=== PATIENT | male | born 1935 | race Caucasian/White ===

== ENCOUNTER → 2016-09-18 | Outpatient (CLI) | payer BC ==
[~2016-09-18] MED LIST: ACET-1256 PO; AMOX500C3 PO; CALC-354 PO; CLC6 PO; CLTP PO; CMD/1 PO; CMD5 PO; CYAN100020 SL; IPRA0.03 NAE; LEVO75TA5 PO; MULT-513 PO; NZRSHM; SIMV40TA2 PO; TEST5GEL TOP; VGR50 PO; WARF5TAB7 PO; WARF7.5T4 PO
[2016-09-18 09:37] LABS: BASO % 0.5 %; BASO ABS # 0.04 K/uL (0-0.2); COMPLETE YES; EOS % 2.2 %; HEMATOCRIT 45.7 % (42-52); IG% 0.3 %; LYMPH % 14.4 %; MEAN CELL VOLUME 92.1 fL (80-100); MEAN CORPUSCULAR HEMOGLOBIN 29.6 pg (25-34); MEAN CORPUSCULAR HGB CONC 32.2 g/dl (32-36); MEAN PLATELET VOLUME 12.9 fL (7.4-10.4); MONO % 11.4 %; NEUT % 71.2 %; PLATELET COUNT 156 K/uL (130-400); RED BLOOD COUNT 4.96 M/uL (4.7-6.1); WHITE BLOOD COUNT 7.63 K/uL (4.8-10.8)
[2016-09-18 10:02] LABS: ESTIMATED AVERAGE GLUCOSE 114 mg/dl; HA1C FLAG Normal (Normal)
[2016-09-18 10:35] LABS: ALT/SGPT 22 U/L (12-78); AST/SGOT 18 U/L (15-37); BLOOD UREA NITROGEN 29 mg/dl (7-18); BUN/CREATININE RATIO 15.3 (10-20); CALCIUM 8.6 mg/dl (8.5-10.1); CARBON DIOXIDE 29 mmol/L (21-32); CHLORIDE 109 mmol/L (98-107); GLUCOSE 100 mg/dl (70-99); POTASSIUM 4.5 mmol/L (3.5-5.1); SODIUM 144 mmol/L (136-145)
[2016-09-18 10:46] LABS: ALB/GLOB RATIO 1.3 (0.9-2); ALKALINE PHOSPHATASE 55 U/L (45-117); CHOLESTEROL 171 mg/dl (0-200); CHOLESTEROL/HDL RATIO 3.5; HDL CHOLESTEROL 49 mg/dl; LDL CHOLESTEROL CALCULATED 97 mg/dl; TRIGLYCERIDES 125 mg/dl (0-150); VERY LOW DENSITY LIPOPROT CALC 25 mg/dl
--- NOTE | 2016-09-22 11:51 | CODING QUERY MEDICAL NECESSITY ---
CQSUPPORTING DIAGNOSIS NEEDED A supporting diagnosis is required for the test/procedure performed on this patient in order for us to be reimbursed by the patient's insurance. Please provide a supporting diagnosis for the following test/procedure listed below next to the test name along with your signature. *If there is no additional diagnosis for this patient that would support the following test/procedure please document that below next to the test/procedure. Test(s)/Procedure(s) that require a supporting diagnosis: DOS 09/18/16 GLYCATED HEMOGLOBIN TEST Provider Signature: Date: Thank you Sherice [facility] [employer] Information [employer] Once completed, please kindly fax back to [phone] For questions please call [phone]
== END | disposition home or self-care (01) ==
LOC: C.LAB1850 08:46
PROVIDERS: ATTEND Family Medicine
DX: E78.00 Pure hypercholesterolemia, unspecified (principal); E03.9 Hypothyroidism, unspecified; I25.10 Atherosclerotic heart disease of native coronary artery without angina pectoris

== ENCOUNTER 2016-10-14 08:11 | Emergency (ER) | payer BC ==
[~2016-10-14] VITALS: Ht 188 cm; Wt 81.0 kg
[~2016-10-14 08:11] MED LIST changes: -ACET-1256 PO; -CALC-354 PO; -WARF5TAB7 PO; -WARF7.5T4 PO
[2016-10-14 08:29] VITALS: TEMP 36.7; Ht 188 cm; Wt 81.0 kg
--- NOTE | 2016-10-14 09:20 | EMERGENCY ROOM VISIT NOTE ---
History Report prepared by Nettie: Martin Sosa Under the Supervision of: Dr. Elle Valle M.D. First contact with patient: 08:56 Chief Complaint: HIP PAIN Stated Complaint: RIGHT HIP FEELS INJURED History of Present Illness The patient is a 81 year old male who presents to the Emergency Room with complaints of right hip pain that began last night. He rates his pain a 9/10 in severity. At this time, the patient was napping on the couch. He then tried to get up and tripped over the coffee table. He then fell onto his right hip and both elbows. He landed on carpet that was over hardwood floor. He did not lose consciousness or hit his head. He denies any neck pain, back pain, or abdominal pain. His hip pain worsens with weight bearing and movement. He takes a blood thinner secondary to an artificial aortic valve that was placed in 1985. Source of History: patient Onset: last night Position: other (Right hip) Symptom Intensity: 9/10 Quality: ache Timing: constant Modifying Factors (Worsening): exertion, movement Associated Symptoms: No LOC, No abdominal pain, No back pain, No headache, No neck pain Review of Systems See HPI for pertinent positives & negatives. A total of 10 systems reviewed and were otherwise negative. Past Medical & Surgical Medical Problems: (1) Cardiomegaly Surgical Problems: (1) H/O aortic valve replacement Family History Diabetes mellitus Hypertension Social History Smoking Status: Never Smoker Smokeless Tobacco Use: No Alcohol Use: occasionally Drug Use: none Marital Status: Housing Status: lives with family Occupation Status: retired Current/Historical Medications Scheduled Acetaminophen (Tylenol), 1,000 MG PO DAILY Amoxicillin (Amoxil), MG PO UD Calcium Carbonate-Cholecalcife (Caltrate 600+D), 1 TAB PO DAILY Cyanocobalamin (Vitamin B12), 5,000 MCG SL DAILY Ipratropium [place] (Nasal) (Ipratropium [place]), 3 SPRAYS TICO DAILY Ketoconazole (Ketoconazole), UD Levothyroxine Sodium (Levothyroxine Sodium), 75 MCG PO DAILY Multivitamins/Minerals (Mvi With Minerals), 1 TAB PO DAILY Sildenafil Citrate (Viagra), 50 MG PO PRN Simvastatin (Zocor), 40 MG PO QPM Testosterone (Androgel Pump), 40.5 MG TOP DAILY Warfarin Sod (Jantoven), 7.5 MG PO UD Warfarin Sod (Jantoven), 5 MG PO UD Scheduled PRN Colchicine (Colcrys), 0.6 MG PO UD PRN for GOUT Allergies Uncoded Allergies: CODEINE DERIVATIVES (Allergy, Unknown, UNKNOWN, 11/12/15) HYDROMET (Allergy, Unknown, UNKNOWN, 11/12/15) Physical Exam Vital Signs Date Time Temp Pulse Resp B/P Pulse Ox O2 Delivery O2 Flow Rate FiO2 10/14/16 14:06 68 20 134/80 96 Room Air 10/14/16 12:50 69 20 124/70 99 Room Air 10/14/16 10:52 79 18 136/77 93 Room Air 10/14/16 08:29 36.7 78 18 139/74 94 Room Air Physical Exam Vital signs reviewed. General: Well-appearing elderly man, in no significant distress. HEENT: No scleral icterus, PERRLA, neck supple. Atraumatic. Cardiovascular: Regular rate and rhythm, systolic ejection murmur. Pulmonary: Clear to auscultation bilaterally, normal work of breathing. Abdomen: Soft, nontender, nondistended, positive bowel sounds. Musculoskeletal: Mild tenderness to palpation over the proximal right femur, some discomfort with straight leg raise, complains of pain at the right iliac crest with movement, no peripheral edema. Neurologic: Patient awake alert and oriented x 3, full strength in all 4 extremities. Cranial nerves 2 through 12 grossly intact. Skin: Warm, dry, no rash Medical Decision & Procedures ER Provider Diagnostic Interpretation: Radiology results as stated below per my review and radiologist interpretation: LUMBAR SPINE 5 VIEWS HISTORY: Trauma. Pain. Radiculopathy. pain r leg with weight bearing, fall COMPARISON: None. FINDINGS: There is no fracture. No subluxation. Moderate to rather significant degenerative disc changes throughout. Degenerative change of vertebral endplates. IMPRESSION: Degenerative change. No acute bony abnormality. Electronically signed by: Jose Ramon Dowd M.D. 10/14/2016 10:47 AM Dictated Date/Time: 10/14/2016 10:46 AM RIGHT PELVIS/UNILATERAL HIP 2-3VIEWS CLINICAL HISTORY: PAIN R LEG WITH WEIGHT BEARING, FALL Right COMPARISON: None. DISCUSSION: Fracture medial right pubic ring. No evidence for hip fracture. No evidence for acetabular protrusion. There is no evidence for soft tissue swelling. IMPRESSION: Fracture medial right pubic ring. Electronically signed by: Jose Ramon Dowd M.D. 10/14/2016 10:46 AM Dictated Date/Time: 10/14/2016 10:45 AM Laboratory Results 10/14/16 12:55 Red Blood Count 4.98, Mean Corpuscular Volume 90.8, Mean Corpuscular Hemoglobin 29.7, Mean Corpuscular Hemoglobin Concent 32.7, Mean Platelet Volume 12.4, Neutrophils (%) (Auto) 78.5, Lymphocytes (%) (Auto) 10.4, Monocytes (%) (Auto) 9.0, Eosinophils (%) (Auto) 1.6, Basophils (%) (Auto) 0.2, Neutrophils # (Auto) 7.79, Lymphocytes # (Auto) 1.03, Monocytes # (Auto) 0.89, Eosinophils # (Auto) 0.16, Basophils # (Auto) 0.02 10/14/16 12:55 Test 10/14/16 12:55 White Blood Count 9.92 K/uL (4.8-10.8) Red Blood Count 4.98 M/uL (4.7-6.1) Hemoglobin 14.8 g/dL (14.0-18.0) Hematocrit 45.2 % (42-52) Mean Corpuscular Volume 90.8 fL (80-100) Mean Corpuscular Hemoglobin 29.7 pg (25-34) Mean Corpuscular Hemoglobin Concent 32.7 g/dl (32-36) Platelet Count 162 K/uL (130-400) Mean Platelet Volume 12.4 fL (7.4-10.4) Neutrophils (%) (Auto) 78.5 % Lymphocytes (%) (Auto) 10.4 % Monocytes (%) (Auto) 9.0 % Eosinophils (%) (Auto) 1.6 % Basophils (%) (Auto) 0.2 % Neutrophils # (Auto) 7.79 K/uL (1.4-6.5) Lymphocytes # (Auto) 1.03 K/uL (1.2-3.4) Monocytes # (Auto) 0.89 K/uL (0.11-0.59) Eosinophils # (Auto) 0.16 K/uL (0-0.5) Basophils # (Auto) 0.02 K/uL (0-0.2) RDW Standard Deviation 46.3 fL (36.4-46.3) RDW Coefficient of Variation 13.8 % (11.5-14.5) Immature Granulocyte % (Auto) 0.3 % Immature Granulocyte # (Auto) 0.03 K/uL (0.00-0.02) Platelet Estimate NORMAL Prothrombin Time 29.2 SECONDS (9.0-12.0) Prothromb Time International Ratio 2.6 (0.9-1.1) Activated Partial Thromboplast Time 45.1 SECONDS (21.0-31.0) Partial Thromboplastin Ratio 1.7 Anion Gap 2.0 mmol/L (3-11) Est Creatinine Clear Calc Drug Dose 41.5 ml/min Estimated GFR () 46.1 Estimated GFR (Non- 39.8 BUN/Creatinine Ratio 14.8 (10-20) Calcium Level 8.9 mg/dl (8.5-10.1) Magnesium Level 2.3 mg/dl (1.8-2.4) Total Bilirubin 1.1 mg/dl (0.2-1) Direct Bilirubin 0.2 mg/dl (0-0.2) Aspartate Amino Transf (AST/SGOT) 20 U/L (15-37) Alanine Aminotransferase (ALT/SGPT) 25 U/L (12-78) Alkaline Phosphatase 68 U/L (45-117) Total Protein 7.1 gm/dl (6.4-8.2) Albumin 4.0 gm/dl (3.4-5.0) Laboratory results per my review. ECG Indication: other (Fall) Rate (beats per minute): 62 Rhythm: normal sinus Findings: LBBB (Incomplete), no acute ischemic change, left axis deviation, no ectopy ED Course 0856: Past medical records reviewed. The patient was evaluated in room B11B. A complete history and physical examination was performed. 1540: The patient was signed out to Dr. Lock at the change in shifts. Medical Decision Differential diagnosis: Etiologies such as fracture, dislocation, neurovascular compromise, compartment syndrome, soft tissue injury, as well as others were entertained. This patient was evaluated and appeared to be in no significant distress. Physical examination is consistent with some pain along the right hip/pelvis. X -rays were performed and are consistent with a right pubic ring fracture. Patient's laboratory work was obtained and is fairly unrevealing. The patient is therapeutic with his INR. The patient has remained stable in the emergency department. He is fairly comfortable without bearing weight. He is unstable and requires some assistance with any ambulation. This time the patient will greatly benefit from pain management and physical therapy. He will be referred to [facility] for further management. At this time we are awaiting insurance approval and case management arrangements. The patient was signed out to Dr. Lock at the change of shift, pending disposition. Impression Primary Impression: Complete disruption of pelvic ring Additional Impression: Fracture, pelvis closed Scribe Attestation The scribe's documentation has been prepared under my direction and personally reviewed by me in its entirety. I confirm that the note above accurately reflects all work, treatment, procedures, and medical decision making performed by me. Departure Information Dispostion Still a Patient Referrals Opal Guerrero DO (PCP) Patient Instructions My [facility] Problem Qualifiers
[2016-10-14] MEDS ORDERED: WARF7.5T4 PO (10:13)
[2016-10-14] MEDS ORDERED: WARF5TAB7 PO (10:15)
[2016-10-14] MEDS ORDERED: ACET-1256 PO (10:17)
[2016-10-14] MEDS ORDERED: CALC-354 PO (10:18)
--- NOTE | 2016-10-14 10:47 | DIAGNOSTIC IMAGING REPORT ---
RIGHT PELVIS/UNILATERAL HIP 2-3VIEWS CLINICAL HISTORY: PAIN R LEG WITH WEIGHT BEARING, FALL Right COMPARISON: None. DISCUSSION: Fracture medial right pubic ring. No evidence for hip fracture. No evidence for acetabular protrusion. There is no evidence for soft tissue swelling. IMPRESSION: Fracture medial right pubic ring. Electronically signed by: Jose Ramon Dowd M.D. 10/14/2016 10:46 AM Dictated Date/Time: 10/14/2016 10:45 AM
--- NOTE | 2016-10-14 10:48 | DIAGNOSTIC IMAGING REPORT ---
LUMBAR SPINE 5 VIEWS HISTORY: Trauma. Pain. Radiculopathy. pain r leg with weight bearing, fall COMPARISON: None. FINDINGS: There is no fracture. No subluxation. Moderate to rather significant degenerative disc changes throughout. Degenerative change of vertebral endplates. IMPRESSION: Degenerative change. No acute bony abnormality. Electronically signed by: Jose Ramon Dowd M.D. 10/14/2016 10:47 AM Dictated Date/Time: 10/14/2016 10:46 AM
[2016-10-14 13:31] LABS: INR 2.6 (0.9-1.1); PARTIAL THROMBOPLASTIN RATIO 1.7; PROTHROMBIN TIME (PATIENT) 29.2 SECONDS (9.0-12.0)
[2016-10-14 13:34] LABS: BUN/CREATININE RATIO 14.8 (10-20); CALCIUM 8.9 mg/dl (8.5-10.1); CREATININE 1.6 mg/dl (0.60-1.40); MAGNESIUM 2.3 mg/dl (1.8-2.4); POTASSIUM 4.5 mmol/L (3.5-5.1)
[2016-10-14 14:02] LABS: BASO % 0.2 %; BASO ABS # 0.02 K/uL (0-0.2); COMPLETE YES; EOS % 1.6 %; HEMATOCRIT 45.2 % (42-52); IG% 0.3 %; LYMPH % 10.4 %; LYMPH ABS # 1.03 K/uL (1.2-3.4); MEAN CELL VOLUME 90.8 fL (80-100); MEAN CORPUSCULAR HEMOGLOBIN 29.7 pg (25-34); MEAN CORPUSCULAR HGB CONC 32.7 g/dl (32-36); MEAN PLATELET VOLUME 12.4 fL (7.4-10.4); NEUT % 78.5 %; PLATELET COUNT 162 K/uL (130-400); PLT ESTIMATE NORMAL; RED BLOOD COUNT 4.98 M/uL (4.7-6.1); WHITE BLOOD COUNT 9.92 K/uL (4.8-10.8)
[2016-10-14 19:55] VITALS: BP 124/61; PULSE 78; O2SAT 98
--- NOTE | 2016-10-15 00:30 | EMERGENCY ROOM VISIT NOTE ---
ED Visit Note Patient sent to [facility].
== END 2016-10-14 20:06 ==
LOC: C.EDB 08:12
DX: S32.810A Multiple fractures of pelvis with stable disruption of pelvic ring, initial encounter for closed fracture (principal); W01.0XXA Fall on same level from slipping, tripping and stumbling without subsequent striking against object, initial encounter; Y92.009 Unspecified place in unspecified non-institutional (private) residence as the place of occurrence of the external cause; I51.7 Cardiomegaly; Z79.01 Long term (current) use of anticoagulants; Z95.2 Presence of prosthetic heart valve; Z83.3 Family history of diabetes mellitus; Z82.49 Family history of ischemic heart disease and other diseases of the circulatory system

== ENCOUNTER → 2016-11-08 | Outpatient (CLI) | payer BC ==
[~2016-11-08] MED LIST changes: +ACET-1256 PO; +CALC-354 PO; -CLTP PO; -CMD/1 PO; -CMD5 PO; +WARF5TAB7 PO; +WARF7.5T4 PO
[2016-11-08 17:09] LABS: BLOOD UREA NITROGEN 24 mg/dl (7-18); CALCIUM 8.5 mg/dl (8.5-10.1); CARBON DIOXIDE 29 mmol/L (21-32); CHLORIDE 109 mmol/L (98-107); GLUCOSE 114 mg/dl (70-99); POTASSIUM 4.8 mmol/L (3.5-5.1); SODIUM 143 mmol/L (136-145)
== END | disposition home or self-care (01) ==
LOC: C.LABBC 13:36
PROVIDERS: ATTEND Family Medicine
DX: N18.3 Chronic kidney disease, stage 3 (moderate) (principal); E03.9 Hypothyroidism, unspecified

== ENCOUNTER → 2016-12-05 | Outpatient (CLI) | payer BC ==
--- NOTE | 2016-12-05 11:02 | DIAGNOSTIC IMAGING REPORT ---
SINGLE VIEW PELVIS CLINICAL HISTORY: Follow-up pelvic fracture. FINDINGS: 2 AP pelvic radiographs are compared to study dated 11/12/2015. The skeletal structures are osteopenic. There is a chronic appearing right inferior pubic ring fracture. No acute fracture is identified. Mild arthritic change is noted in the hips. There is mild sclerotic change seen in the sacroiliac joints. Surgical clips project over the left groin. Phleboliths are seen in the pelvis. IMPRESSION: 1. No acute fracture is identified involving the hips or bony pelvis. 2. Osteopenia, mild degenerative change, and chronic right pubic ring fracture as above. Electronically signed by: Jose Johnson M.D. 12/05/2016 11:01 AM Dictated Date/Time: 12/05/2016 10:58 AM
== END | disposition home or self-care (01) ==
LOC: C.RAD1850 10:34
PROVIDERS: ATTEND Nurse Practitioner Family
DX: S32.9XXA Fracture of unspecified parts of lumbosacral spine and pelvis, initial encounter for closed fracture (principal); X58.XXXA Exposure to other specified factors, initial encounter; M85.88 Other specified disorders of bone density and structure, other site

== ENCOUNTER → 2016-12-13 | Outpatient (CLI) | payer BC | END | disposition home or self-care (01) | LOC: C.LAB1850 10:01 | PROVIDERS: ATTEND Nurse Practitioner Family | DX: S32.9XXA Fracture of unspecified parts of lumbosacral spine and pelvis, initial encounter for closed fracture (principal); X58.XXXA Exposure to other specified factors, initial encounter; M85.80 Other specified disorders of bone density and structure, unspecified site ==

== ENCOUNTER → 2016-12-20 | Outpatient (CLI) | payer BC ==
--- NOTE | 2016-12-26 10:26 | CODING QUERY MEDICAL NECESSITY ---
SUPPORTING DIAGNOSIS NEEDED A supporting diagnosis is required for the test/procedure performed on this patient in order for us to be reimbursed by the patient's insurance. Please provide a supporting diagnosis for the following test/procedure listed below next to the test name along with your signature. *If there is no additional diagnosis for this patient that would support the following test/procedure please document that below next to the test/procedure. Test(s)/Procedure(s) that require a supporting diagnosis: * DXA, BONE DENSITY AXIAL DIAGNOSIS: Provider Signature: Date: Thank you Tegan [employer] Information Management Once completed, please kindly fax back to [phone] For questions please call [phone]
== END | disposition home or self-care (01) ==
LOC: C.MAMM 13:30
PROVIDERS: ATTEND Nurse Practitioner Family
DX: S32.9XXA Fracture of unspecified parts of lumbosacral spine and pelvis, initial encounter for closed fracture (principal); X58.XXXA Exposure to other specified factors, initial encounter; M85.88 Other specified disorders of bone density and structure, other site

== ENCOUNTER → 2017-01-25 | Outpatient (CLI) | payer BC | END | disposition home or self-care (01) | LOC: C.PATHSPEC 17:27 | PROVIDERS: ATTEND Dermatology | DX: L57.0 Actinic keratosis (principal) ==

== ENCOUNTER → 2017-05-23 | Outpatient (CLI) | payer BC ==
[2017-05-23 12:30] LABS: BLOOD UREA NITROGEN 22 mg/dl (7-18); CREATININE 1.85 mg/dl (0.60-1.40)
== END | disposition home or self-care (01) ==
LOC: C.LAB1850 10:42
PROVIDERS: ATTEND Physician Assistant
DX: H53.19 Other subjective visual disturbances (principal)

== ENCOUNTER → 2017-05-25 | Outpatient (CLI) | payer BC ==
--- NOTE | 2017-05-25 19:52 | DIAGNOSTIC IMAGING REPORT ---
BRAIN W/O FOR IAC CLINICAL HISTORY: 81 years-old Male presenting with N18.3 Stage III chronic kidney [id number] Vertigo, oscillopsia, fall off ladder a few months ago and hit head, now with dull frontal headache, vertigo, off balance. TECHNIQUE: Multisequence, multiplanar MR imaging of the brain was performed without the use of intravenous contrast. IV contrast: None. COMPARISON: 03/22/2016. FINDINGS: Proportional ventricular and sulcal prominence, likely age-related parenchymal volume loss. Periventricular and subcortical white matter T2/FLAIR hyperintensity, nonspecific but likely indicative of chronic small vessel ischemic change. 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 Internal auditory canals normal. Visualized cranial nerves normal. Inner ear structures normal. No mass effect or midline shift. No restricted diffusion to suggest acute ischemia. No hemorrhage. No extra-axial fluid collection. Abnormal signal intensity within the left sigmoid sinus. T2 skull base flow voids otherwise preserved. Bone marrow signal intensity within the calvarium within normal limits. IMPRESSION: 1. Chronic small vessel ischemic change. No acute intracranial abnormality. 2. Abnormal signal intensity within the left sigmoid sinus where a flow void is expected. This could relate to slow flow artifact. Less likely differential considerations include thrombus. If there is clinical concern for this and he, MRV or CTV be obtained. Electronically signed by: Edwardo Edwards M.D. 05/25/2017 7:51 PM Dictated Date/Time: 05/25/2017 7:44 PM
== END | disposition home or self-care (01) ==
LOC: C.MRI 17:57
PROVIDERS: ATTEND Physician Assistant
DX: N18.3 Chronic kidney disease, stage 3 (moderate) (principal); R42 Dizziness and giddiness

== ENCOUNTER → 2017-06-08 | Outpatient (CLI) | payer BC ==
[2017-06-08 17:28] LABS: BASO % 0.9 %; BASO ABS # 0.07 K/uL (0-0.2); EOS % 3.2 %; EOS ABS # 0.26 K/uL (0-0.5); HEMATOCRIT 42.8 % (42-52); HEMOGLOBIN 13.7 g/dL (14.0-18.0); IG# 0.02 K/uL (0.00-0.02); LYMPH % 18.3 %; MEAN CORPUSCULAR HEMOGLOBIN 29.8 pg (25-34); MEAN PLATELET VOLUME 12.9 fL (7.4-10.4); MONO % 9.6 %; MONO ABS # 0.79 K/uL (0.11-0.59); NEUT % 67.8 %; NEUT ABS # 5.57 K/uL (1.4-6.5); PLATELET COUNT 152 K/uL (130-400); RED CELL DISTRIBUTION WIDTH CV 13.7 % (11.5-14.5); RED CELL DISTRIBUTION WIDTH SD 46.2 fL (36.4-46.3); WHITE BLOOD COUNT 8.21 K/uL (4.8-10.8)
== END | disposition home or self-care (01) ==
LOC: C.LAB1850 16:20
PROVIDERS: ATTEND Ophthalmology
DX: E03.9 Hypothyroidism, unspecified (principal); G45.3 Amaurosis fugax

== ENCOUNTER → 2017-07-03 | Outpatient (CLI) | payer BC | END | disposition home or self-care (01) | LOC: C.LABSPEC 11:29 | PROVIDERS: ATTEND Podiatrist Primary Podiatric Medicine | DX: B35.1 Tinea unguium (principal) ==

== ENCOUNTER → 2017-07-19 | Outpatient (CLI) | payer BC ==
--- NOTE | 2017-07-19 09:03 | DIAGNOSTIC IMAGING REPORT ---
MR ANGIOGRAPHY OF THE [place] NO CONTRAST CLINICAL HISTORY: G45.3 Amaurosis [id number] HEADACHES COMPARISON STUDY: MRI the brain dated 05/25/2017 A 3-D [id number] MR angiographic sequence of the [place] was performed. Both the source and projection images were reviewed. There is no evidence of major intracranial branch occlusion. There is a hypoplastic right A1 segment. There is no evidence of intracranial stenosis. There are no lesions suspicious for aneurysm. IMPRESSION: Hypoplastic right A1 segment. Otherwise unremarkable MR angiography of the [place]. Electronically signed by: Thomas Santillan M.D. 07/19/2017 9:02 AM Dictated Date/Time: 07/19/2017 8:35 AM
== END | disposition home or self-care (01) ==
LOC: C.MRI 07:57
PROVIDERS: ATTEND Physician Assistant
DX: G45.3 Amaurosis fugax (principal)

== ENCOUNTER → 2017-07-26 | Outpatient (CLI) | payer BC ==
[2017-08-02 20:16] LABS: ACETYLCHOLINE RECEPT BLOCKING <15 % inhibit (<15)
== END | disposition home or self-care (01) ==
LOC: C.LAB 14:03
PROVIDERS: ATTEND Physician Assistant
DX: H53.2 Diplopia (principal)

== ENCOUNTER → 2017-08-01 | Outpatient (CLI) | payer BC ==
[2017-08-07 22:32] LABS: ACETYLCHOLINE RECEPT BLOCKING <15 % inhibit (<15)
== END | disposition home or self-care (01) ==
LOC: C.LAB1850 11:12
PROVIDERS: ATTEND Physician Assistant
DX: E03.9 Hypothyroidism, unspecified (principal); H53.2 Diplopia

== ENCOUNTER → 2017-08-10 | Outpatient (CLI) | payer BC ==
--- NOTE | 2017-08-10 13:25 | DIAGNOSTIC IMAGING REPORT ---
MRA NECK WITHOUT CONTRAST CLINICAL HISTORY: G45.3 Amaurosis [id number] COMPARISON STUDY: No previous studies for comparison. FINDINGS: A noncontrast MR angiography study the neck was performed. The study reveals no evidence of hemodynamically significant carotid stenosis. IMPRESSION: No evidence of hemodynamically significant carotid stenosis. Electronically signed by: Thomas Santillan M.D. 08/10/2017 1:23 PM Dictated Date/Time: 08/10/2017 1:22 PM
== END | disposition home or self-care (01) ==
LOC: C.MRIBC 12:28
PROVIDERS: ATTEND Psychiatry & Neurology Neurology
DX: G45.3 Amaurosis fugax (principal)

== ENCOUNTER → 2017-10-10 | Outpatient (CLI) | payer BC ==
[2017-10-10 09:38] LABS: BASO % 0.5 %; BASO ABS # 0.04 K/uL (0-0.2); EOS % 3.2 %; EOS ABS # 0.26 K/uL (0-0.5); HEMATOCRIT 41.1 % (42-52); HEMOGLOBIN 13.2 g/dL (14.0-18.0); IG# 0.01 K/uL (0.00-0.02); LYMPH % 12.6 %; LYMPH ABS # 1.04 K/uL (1.2-3.4); MEAN CELL VOLUME 90.1 fL (80-100); MEAN CORPUSCULAR HEMOGLOBIN 28.9 pg (25-34); MEAN CORPUSCULAR HGB CONC 32.1 g/dl (32-36); MEAN PLATELET VOLUME 12.1 fL (7.4-10.4); MONO % 11.6 %; MONO ABS # 0.96 K/uL (0.11-0.59); NEUT ABS # 5.94 K/uL (1.4-6.5); PLATELET COUNT 186 K/uL (130-400); RED CELL DISTRIBUTION WIDTH CV 14.4 % (11.5-14.5); RED CELL DISTRIBUTION WIDTH SD 47.3 fL (36.4-46.3); WHITE BLOOD COUNT 8.25 K/uL (4.8-10.8)
[2017-10-10 10:08] LABS: BLOOD UREA NITROGEN 25 mg/dl (7-18); CREATININE 1.76 mg/dl (0.60-1.40); GLUCOSE 88 mg/dl (70-99)
[2017-10-10 10:09] LABS: ALBUMIN 3.8 gm/dl (3.4-5.0); ALT/SGPT 36 U/L (12-78); AST/SGOT 32 U/L (15-37); CALCIUM 8.3 mg/dl (8.5-10.1); CARBON DIOXIDE 29 mmol/L (21-32); CHOLESTEROL 140 mg/dl (0-200); POTASSIUM 4.3 mmol/L (3.5-5.1); SODIUM 142 mmol/L (136-145)
[2017-10-10 10:17] LABS: ALKALINE PHOSPHATASE 72 U/L (45-117); LDL CHOLESTEROL CALCULATED 81 mg/dl
== END | disposition home or self-care (01) ==
LOC: C.LAB1850 08:46
PROVIDERS: ATTEND Nurse Practitioner Family
DX: E78.00 Pure hypercholesterolemia, unspecified (principal); E03.9 Hypothyroidism, unspecified; I25.10 Atherosclerotic heart disease of native coronary artery without angina pectoris; Z95.4 Presence of other heart-valve replacement